=== PATIENT | male | born 1935 | race African-American/Black ===

== ENCOUNTER 2019-05-16 00:18 | Inpatient (IN) | payer OTHER ==
[~2019-05-16] VITALS: Ht 172.7 cm; Wt 103.4 kg
[2019-05-16] VITALS (7 sets, daily range): BP systolic 133–165; BP diastolic 70–107
--- NOTE | 2019-05-16 00:18 | NUR ---
PT BIBA TO BED 10.
--- NOTE | 2019-05-16 00:18 | NUR ---
RT AT BEDSIDE PATIENT PLACED ON BIPAP
--- NOTE | 2019-05-16 00:20 | NUR ---
PATIENT BREATHING LABORED AND EVEN, SPO2 100%. PATIENT IS ALERT AND ORIENTED. SKIN WARM AND DRY.
--- NOTE | 2019-05-16 00:20 | NUR ---
83 YEAR OLD MALE BIBA FOR SHORTNESS OF BREATHE. PATIENT RR 35, SPO2 96%. PATIENT HAS FAST, SHALLOW BREATHING. LUNG SOUNDS DIMINISHED BILATERALLY THROUGHOUT, WHEEZING ON LEFT LOWER LOBE. RESPIRATORY THERAPY AT BEDSIDE PLACED PATIENT ON BIPAP ON ARRIVAL. PATIENT ALERT AND ORIENTED, BED IN LOWEST POSITION, LOCKED, BED RAIL UPX1.
[2019-05-16] MEDS ORDERED: ALBUTEROL SULFATE/IPRATROPIU 3 ML SOL IH ONE (00:25)
--- NOTE | 2019-05-16 00:46 | NUR ---
XRAY AT BEDSIDE
[2019-05-16 00:51] LABS: BASOPHILS % (AUTO) 0.7 % (0.0-2.0); EOSINOPHILS # (AUTO) 0.1 K/uL (0-0.4); EOSINOPHILS % (AUTO) 3.3 % (0.0-4.0); HEMATOCRIT 47.6 % (36-52); HEMOGLOBIN 15.1 g/dL (12.0-18.0); LYMPHOCYTES # (AUTO) 1.5 K/uL (2.0-11.5); LYMPHOCYTES % (AUTO) 38.2 % (20.5-51.1); MEAN CORPUSCULAR HEMOGLOBIN 31 pg (27-31); MEAN CORPUSCULAR HGB CONC 32 g/dL (33-37); MONOCYTES # (AUTO) 0.7 K/uL (0.8-1.0); NEUTROPHILS # (AUTO) 1.6 K/uL (1.8-7.7); NEUTROPHILS % (AUTO) 40.8 % (42.2-75.2); PLATELET COUNT (AUTO) 146 K/uL (140-450); RED BLOOD CELL COUNT(AUTO) 4.91 MIL/uL (4.20-6.10); RED CELL DISTRIBUTION WIDTH 15.9 % (11.6-13.7); WHITE BLOOD COUNT (AUTO) 3.9 K/uL (4.8-10.8)
[2019-05-16 00:55] LABS: APPEARANCE,URINE CLEAR (CLEAR); BILIRUBIN,URINE 1+ (NEGATIVE); BLOOD, URINE 2+ (NEGATIVE); COLOR,URINE YELLOW (YELLOW); LEUKOCYTE ESTERASE ,URINE NEGATIVE (NEGATIVE); NITRITE, URINE NEGATIVE (NEGATIVE); UGLUCOSE NEGATIVE (NEGATIVE)
[2019-05-16 00:59] LABS: ANION GAP 9.5 (8-16); CARBON DIOXIDE 30.9 mmol/L (21-32); CHLORIDE 107 mmol/L (98-107); CREATININE 1.3 mg/dL (0.7-1.3); GLUCOSE 101 mg/dL (74-106); POTASSIUM 4.4 mmol/L (3.5-5.1); SODIUM SERUM 143 mmol/L (136-145); UREA NITROGEN, BLOOD 19 mg/dL (7-18)
[2019-05-16 01:07] LABS: PROTHROMBIN TIME 12.5 secs (10.8-13.4)
[2019-05-16 01:10] LABS: RBC,URINE 11-20 (MOD) /HPF (0-5)
[2019-05-16 01:11] LABS: WBC,URINE 0-5 /HPF (0-5)
[2019-05-16 01:12] LABS: ALBUMIN 3.4 g/dL (3.4-5.0); ASPARTATE AMINOTRANSFERASE 25 U/L (15-37); LIPASE 58 U/L (73-393); TOTAL BILIRUBIN 0.8 mg/dL (0.0-1.0)
--- NOTE | 2019-05-16 01:35 | NUR ---
RESUMED CARE OF PT. RECEIVED REPORT FROM ROXANNE MCNALLY AND ROXANNE MCDONALD. PT SITTING IN BED WITH BIPAP ON. AWAKE, ALERT. SPO2 97%. PT REPORTS DOING WELL. DENIES PAIN. REQUESTING TO TIGHTEN STRAPS ON MASK BECAUSE THE MASK FEELS LOOSE.
[2019-05-16] MEDS ORDERED: FUROSEMIDE 20 MG/2 ML VIAL IVP ONE (02:20)
[2019-05-16] MEDS ORDERED: NITROGLYCERIN 0.4 MG TAB SL ONE (02:20)
[2019-05-16] MEDS ORDERED: DOCUSATE SODIUM 100 MG GELCAP PO PRN (02:30)
[2019-05-16] MEDS ORDERED: ONDANSETRON 4 MG/2 ML VIAL IM/IVP PRN (02:30)
[2019-05-16] MEDS ORDERED: HYDROcodone/APAP 5/325 MG 1 TAB TAB PO PRN (02:30)
[2019-05-16] MEDS ORDERED: MORPHINE SULFATE 2 MG/ML SYR IVP PRN (02:30)
[2019-05-16] MEDS ORDERED: ACETAMINOPHEN 325 MG TAB PO PRN (02:30)
--- NOTE | 2019-05-16 02:30 | NUR ---
CLOTH FOLDER MACHINE AT BEDSIDE. ATTEMPTING TO TRIAL OFF BIPAP.
[2019-05-16] MEDS ORDERED: ALBUTEROL SULFATE/IPRATROPIU 3 ML SOL IH PRN (02:35)
--- NOTE | 2019-05-16 02:39 | NUR ---
TOLERATED TRIAL OFF BIPAP WELL. PT CALM. SKIN NORMAL FOR ETHNICITY. NO INCREASED WORK OF BREATHING AT THIS TIME. RESP RATE 18. SPO2 87%. PLACED ON 2 LPM O2 FOR SPO2 MAINTANANCE ABOVE 88%. 95% ON 2 LPM O2.
[2019-05-16 03:09] LABS: MAGNESIUM 1.9 mg/dL (1.8-2.4); PHOSPHORUS 3.2 mg/dL (2.5-4.9); THYROID STIMULATING HORMONE 2.56 uIU/mL (0.34-3.74)
[2019-05-16] MEDS ORDERED: AMLO5TAB PO (03:10)
--- NOTE | 2019-05-16 03:10 | NUR ---
SITTING IN HIGH STALEY'S IN BED. VSS. CALM, COOPERATIVE. A/O X 4. REPORTS NO PAIN. SPEAKS WITHOUT DISTRESS IN CLEAR VOICE. NO INCREASED WOB AT THIS TIME.
[2019-05-16] MEDS ORDERED: UMEC1POW IH (03:11)
--- NOTE | 2019-05-16 03:35 | NUR ---
RECEIVED BEDSIDE REPORT FROM ED RN BRIDGET, FOR PT'S CONTINUITY OF CARE. PT IS AAO X4, AMBULATORY, IS ON EAR NOSE THROAT SURGEON, ON 2L O2 VIA NC AND RECEIVING BREATHING TX, HAS RIGHT AC 20G, DENIES ANY PAIN AT THIS TIME. EXPLAINED TO PT THE CLAY PROCESSING LABOURER ROUTINE, PT VERBALIZED UNDERSTANDING. MD AT BEDSIDE FOR ASSESSMENT. SAFETY MEASURES IN PLACE. BED IS ON LOW POSITION, AND CALL LIGHT IS WITHIN REACH. WILL MONITOR PT THROUGHOUT SHIFT.
--- NOTE | 2019-05-16 03:35 | NUR ---
Patient will be admitted to care of [facility]. Admited to TELE. Will go to room 110B. Belongings list completed. Report to ROXANNE Daniels.
[2019-05-16] MEDS ORDERED: DABI150C PO (03:47)
[2019-05-16] MEDS ORDERED: TRAZ-343 PO (03:47)
[2019-05-16] MEDS ORDERED: ZOLP10TA1 PO (03:47)
[2019-05-16] MEDS ORDERED: SILD20TA PO (03:47)
[2019-05-16] MEDS ORDERED: LORA10TA19 PO (03:47)
[2019-05-16] MEDS ORDERED: LOSA50TA66 PO (03:47)
[2019-05-16] MEDS ORDERED: OMEP20TC12 PO (03:47)
[2019-05-16] MEDS ORDERED: POTA10TE30 PO (03:47)
[2019-05-16] MEDS ORDERED: PRED20TA5 PO (03:47)
[2019-05-16] MEDS ORDERED: DIT5 PO (03:47)
[2019-05-16] MEDS ORDERED: ATOR20TA PO (03:47)
[2019-05-16] MEDS ORDERED: ALBU-118 IH (03:47)
[2019-05-16] MEDS ORDERED: FURO-570 PO (03:47)
[2019-05-16] MEDS ORDERED: [UNRECOGNIZED DRUG - CODE] PO ×2 (03:47→10:38)
--- NOTE | 2019-05-16 06:05 | NUR ---
PT LYING DOWN IN BED WITH NO SIGNS OF DISTRESS. WILL HAVE PT SIGN FOR CONSENT FOR CTA.
[2019-05-16] MEDS: NACL 0.9% 250 ML IV SCH (06:13)
[2019-05-16] MEDS: PANTOPRAZOLE 40 MG TABEC PO SCH (06:46)
[2019-05-16] MEDS: ALBUTEROL SULFATE/IPRATROPIU 3 ML SOL IH SCH ×3 (07:16→19:53)
--- NOTE | 2019-05-16 07:20 | NUR ---
ENDORSED PT TO AM SHIFT RN FOR PT'S CONTINUITY OF CARE. ADMINISTERED SCHEDULED PO MEDICATION ORDERED. PT ON 3L O2 VIA NC. PT IN STABLE CONDITION
--- NOTE | 2019-05-16 07:35 | NUR ---
RECEIVED PATIENT FROM TRAVELING ENGINEER NURSE. PATIENT IS AWAKE. NO DISTRESS NOTED. RESPIRATIONS EVEN AND UNLABORED, ON 3 L O2 VIA NC. PATIENT DENIES ANY SOB. PATIENT IS ON TELE MONITORING. CONTROLLED A-FIB. SKIN INTACT, LOWER LEGS NONPITTING EDEMA NOTED. BOWEL SOUNDS ACTIVE X4 QUADS. SKIN INTACT. IV ON THE RIGHT AV G 20 RUNNING 0.9% NS AT 5ML/HR TKO. IV PATENT, DRY AND INTACT. BED IN LOW POSITION. CALL LIGHT IS WITHIN REACH. WILL CONTINUE TO MONITOR.
[2019-05-16] MEDS: FUROSEMIDE 20 MG/2 ML VIAL IVP SCH (08:43)
[2019-05-16] MEDS: LORATADINE 10 MG TAB PO SCH (08:44)
[2019-05-16] MEDS: amLODIPine 5 MG TAB PO SCH (08:44)
[2019-05-16] MEDS: POTASSIUM CHLORIDE 10 MEQ TABER PO SCH (08:44)
[2019-05-16] MEDS: SILDENAFIL 20 MG TAB PO SCH ×3 (08:45→16:04)
[2019-05-16] MEDS: OXYBUTYNIN 5 MG TAB PO SCH ×2 (08:45→21:03)
[2019-05-16] MEDS: LOSARTAN 50 MG TAB PO SCH (08:45)
--- NOTE | 2019-05-16 08:45 | NUR ---
ADMINISTERED MORNING MEDICATIONS. EDUCATED PATIENT ON MEDICATIONS AND SIDE EFFECTS. PATIENT VERBALIZED UNDERSTANDING. WILL CONTINUE TO MONITOR.
--- NOTE | 2019-05-16 08:55 | NUR ---
DC PLANNIN YRS OLD MALE PATIENT ADMITTED FROM HOME WITH A DX OF CHF EXACERBATION. PT HAS A HX OF A-FIB, HTN ,AND COPD. AMBULATE WITH WALKER AND USES OXYGEN WITH A BASE LINE OF 2L/NC . ADMINISTERED IV LASIX 20 MG, RT PORTOCOL TO MAINTAIN THE O2 SAT 88-92%, PULMO AND CARDIO CONSULT ORDERED. DC PLAN PER PT'S REQUEST TO TRANSFER TO [facility] . FAXED ALL THE REQUEST TO [facility]. CM TO FOLLOW. Addendum: 05/16/19 at 1044 by Kathie Lanza CM DC PLANNING: CALLED [facility] SPOKE WITH ASSOCIATE FINANCIAL REPRESENTATIVE MAUDE [phone] PER MAUDE WILL FIND THE ADMITTING DR TO ACCEPT PT TO ADMIT AND WILL CALL BACK. CM TO FOLLOW Addendum: 05/16/19 at 1556 by Kathie Lanza CM DC PLANNING: CALLED [facility] SPOKE WITH MAUDE KENASSOCIATE FINANCIAL REPRESENTATIVE, STATED THEY ARE COMPLETELY FULL AND STILL DIDN'T GET ACCEPTING DR. WILL CALL WHEN BED AVAILABLE. NOTIFIED DR MANDEL (RESIDENT) CM TO FOLLOW.
[2019-05-16] MEDS ORDERED: FUROSEMIDE 20 MG/2 ML VIAL IVP SCH (09:00)
[2019-05-16 09:07] LABS: CHOL/HDL RATIO 2.2 (1-4.5)
[2019-05-16] MEDS: DABIGATRAN ETEXILATE MESYLAT 75 MG CAP PO SCH ×2 (10:07→21:07)
--- NOTE | 2019-05-16 10:10 | NUR ---
PATIENT OFF UNIT FOR CT ANGIO VIA WHEELCHAIR.
--- NOTE | 2019-05-16 10:14 | NUR ---
PATIENT HAS BEEN SCREENED AND CATEGORIZED MODERATE NUTRITION RISK. PATIENT WILL BE SEEN WITHIN 3-5 DAYS OF ADMISSION. 05/18/19-05/20/[address]
--- NOTE | 2019-05-16 10:58 | NUR ---
PATIENT'S BACK FROM CT, TRANSFERED VIA WHEELCHAIR. PATIENT IN 3L O2 VIA NC. WILL CONTINUE TO MONITOR PATIENT.
--- NOTE | 2019-05-16 12:47 | NUR ---
PATIENT IS UTILIZING INCENTIVE SPIROMETER. 500-1000 ML, 10X PER HOUR. PATIENT DENIES SOB. WILL CONTINUE TO MONITOR.
--- NOTE | 2019-05-16 13:10 | NUR ---
ADMINISTERED SILDENAFIL PO. EDUCATED ON PURPOSE AND SIDE EFFECTS. PATIENT VERBALIZED UNDERSTANDING. PATIENT DENIES SOB. WILL CONTINUE TO MONITOR.
--- NOTE | 2019-05-16 13:32 | NUR ---
HX: COPD OXYGEN ORDER 88%-92% SATURATION 95% ON SUPPLEMENTAL OXYGEN AT 3 LPM VIA NC POST HHN THERAPY TITRATED FIO2 TO 2 LPM MARY/ROXANNE NOTIFIED
--- NOTE | 2019-05-16 15:38 | NUR ---
PATIENT IS SLEEPING AT THIS TIME. PATIENT DENIES PAIN. DENIES SOB. WILL CONTINUE TO MONITOR.
--- NOTE | 2019-05-16 19:20 | NUR ---
ENDORSED PATIENT TO RUG CLEANING SUPERVISOR NURSE FOR CONTINUITY OF CARE. PATIENT IS IN STABLE CONDITION.
--- NOTE | 2019-05-16 19:20 | NUR ---
RECIEVED PT AAOX4 , NID - ON O2 AT 4LPM /NC 02 SAT 97% . IV SITE INTACT AND PATENT . AT BEDSIDE . USES URINAL - DENIES ANY PAIN AT THIS TIME . UNSTEADY GAIT - ON SAFETY / FALL PRECAUTION PROTOCOL - BED ALARM ON . PLAN OF CARE DISCUSSED AND VERBALIZED UNDERSTANDING - CALL LIGHT WITHIN REACH . WILL CONT. TO MONITOR.
--- NOTE | 2019-05-16 20:45 | NUR ---
CALLED [facility] TALKED TO SUEDE BRUSHER LUTHER REGARDING DRJignesh ORDER FOR TRANSFER TO HIGHER LEVEL OF CARE, PER [facility] CURRENTLY THERE IS NO BED AND NO ADMITTING DOCTOR.
[2019-05-16] MEDS: ZOLPIDEM 10 MG TAB PO SCH (21:03)
[2019-05-16] MEDS: traZODone 50 MG TAB PO SCH (21:03)
[2019-05-16] MEDS: ATORVASTATIN 20 MG TAB PO SCH (21:04)
--- NOTE | 2019-05-16 22:00 | NUR ---
MADE ROUNDS - VOIDED THRU URINAL .- REMINDS HUIM THE USE OF CALL LIGHT WHEN HE NEEDED HELP . - BED ALARM ON
[2019-05-17] VITALS (7 sets, daily range): BP systolic 105–133; BP diastolic 57–80
--- NOTE | 2019-05-17 | NUR ---
MADE ROUNDS . NO S/SX OF ACUTE DISTRESS NOTED AT THIS TIME . CALL LIGHT WITHIN REACH.
--- NOTE | 2019-05-17 02:00 | NUR ---
MADE ROUNDS - SLEEPING - ON FLORAL DESIGNER.
--- NOTE | 2019-05-17 04:00 | NUR ---
MADE ROUNDS - NO S/SX OF ACUTE DISTRESS NOTED AT THIS TIME. CALL LIGHT WITHIN REACH.
[2019-05-17] MEDS: NACL 0.9% 250 ML IV SCH (06:00)
--- NOTE | 2019-05-17 06:00 | NUR ---
MADE ROUNDS , NO S/SX OF ACUTE DISTRESS NOTED AT THIS TIME . NO FURTHER COMPLAIN MADE AT THIS TIME . PLETHBOTOMIST AT BEDSIDE - EXTRACTING FOR BLLOD SAMPLE. WILL CONT. TO MONITOR
[2019-05-17 06:59] LABS: BASOPHILS % (AUTO) 0.6 % (0.0-2.0); EOSINOPHILS # (AUTO) 0.2 K/uL (0-0.4); EOSINOPHILS % (AUTO) 5.1 % (0.0-4.0); HEMATOCRIT 44.2 % (36-52); HEMOGLOBIN 13.9 g/dL (12.0-18.0); LYMPHOCYTES # (AUTO) 1.5 K/uL (2.0-11.5); LYMPHOCYTES % (AUTO) 35.5 % (20.5-51.1); MEAN CORPUSCULAR HEMOGLOBIN 30 pg (27-31); MEAN CORPUSCULAR HGB CONC 32 g/dL (33-37); MONOCYTES # (AUTO) 0.7 K/uL (0.8-1.0); MONOCYTES % (AUTO) 16.7 % (1.7-9.3); NEUTROPHILS # (AUTO) 1.7 K/uL (1.8-7.7); NEUTROPHILS % (AUTO) 42.1 % (42.2-75.2); PLATELET COUNT (AUTO) 137 K/uL (140-450); RED CELL DISTRIBUTION WIDTH 15.7 % (11.6-13.7); WHITE BLOOD COUNT (AUTO) 4.1 K/uL (4.8-10.8)
--- NOTE | 2019-05-17 07:17 | NUR ---
RECEIVED REPORT FROM FLYING TEACHER NURSE FOR CONTINUITY OF CARE. PT IN STABLE CONDITION. RESPIRATIONS EVEN AND UNLABORED, O2 4L VIA NC. IV INTACT AND PATENT. SAFETY MEASURES IN PLACE. BED IN LOW POSITION. BED ALARM ON. CALL LIGHT AT BEDSIDE. WILL CONTINUE TO MONITOR.
--- NOTE | 2019-05-17 07:17 | NUR ---
ENDORSED TO AM SHIFT , WITH STABLE CONDITION.
[2019-05-17 07:22] LABS: ANION GAP 10.7 (8-16); CARBON DIOXIDE 31.4 mmol/L (21-32); CHLORIDE 106 mmol/L (98-107); CREATININE 1.2 mg/dL (0.7-1.3); GLUCOSE 97 mg/dL (74-106); POTASSIUM 4.1 mmol/L (3.5-5.1); SODIUM SERUM 144 mmol/L (136-145); UREA NITROGEN, BLOOD 18 mg/dL (7-18)
[2019-05-17 07:26] LABS: MAGNESIUM 1.7 mg/dL (1.8-2.4); PHOSPHORUS 4.8 mg/dL (2.5-4.9)
[2019-05-17] MEDS: ALBUTEROL SULFATE/IPRATROPIU 3 ML SOL IH SCH ×3 (08:21→19:07)
[2019-05-17] MEDS: TREPROSTINIL DIOLAMINE 1 MG PO SCH ×3 (08:40→16:35)
--- NOTE | 2019-05-17 08:40 | NUR ---
GAVE ORDERED DUE MEDICATIONS AT THIS TIME. PT TOLERATED WELL. BED IN LOW POSITION. BED ALARM ON. CALL LIGHT AT BEDSIDE. WILL CONTINUE TO MONITOR.
[2019-05-17] MEDS: FUROSEMIDE 20 MG/2 ML VIAL IVP SCH (08:41)
[2019-05-17] MEDS: LORATADINE 10 MG TAB PO SCH (08:42)
[2019-05-17] MEDS: POTASSIUM CHLORIDE 10 MEQ TABER PO SCH (08:42)
[2019-05-17] MEDS: SILDENAFIL 20 MG TAB PO SCH ×3 (08:42→16:35)
[2019-05-17] MEDS: OXYBUTYNIN 5 MG TAB PO SCH ×2 (08:42→20:33)
[2019-05-17] MEDS: DABIGATRAN ETEXILATE MESYLAT 75 MG CAP PO SCH ×2 (08:43→20:35)
[2019-05-17] MEDS: PANTOPRAZOLE 40 MG TABEC PO SCH (08:55)
[2019-05-17] MEDS: LOSARTAN 50 MG TAB PO SCH (09:00)
[2019-05-17] MEDS: amLODIPine 5 MG TAB PO SCH (09:00)
[2019-05-17 09:08] LABS: T4 (THYROXINE) 7.7 ug/dL (4.5-12.0)
[2019-05-17] MEDS ORDERED: MAG SULF 2000 MG/WATER PREMIX 50 ML IV ONE (10:00)
--- NOTE | 2019-05-17 11:45 | NUR ---
MILTON ANTUNEZ AND PT SPOUSE AT BEDSIDE FOR UPDATE. PT IN STABLE CONDITION. BED IN LOW POSITION. BED ALARM ON. CALL LIGHT AT BEDSIDE. WILL CONTINUE TO MONITOR.
--- NOTE | 2019-05-17 13:15 | NUR ---
REQUESTING CANCEL TRANSFER TO [facility] FOR HIGHER LEVEL OF CARE. INFORMED SYEDA REDDY OF PT WISHES.
--- NOTE | 2019-05-17 14:00 | NUR ---
PT BROUGHT IN HOME MEDICATION ORENITRAM 0.125 FOR START DATE 05/18/2019 0800. MEDICATION GIVEN TO PHARMACY FOR PT DOSING.
--- NOTE | 2019-05-17 16:00 | NUR ---
ORENITRAM 0.125 STARTS ON 05/18/2019 0800. PHARMACY INFORMED. WILL ENDORSE TO ENROLLMENT SERVICES VICE PRESIDENT NURSE.
--- NOTE | 2019-05-17 19:09 | NUR ---
GAVE REPORT TO LOCOMOTIVE PIPE FITTER NURSE FOR CONTINUITY OF CARE. PT IN STABLE CONDITION.
--- NOTE | 2019-05-17 19:10 | NUR ---
RECEIVED BEDSIDE REPORT FROM AM SHIFT RN EMILEE, FOR PT'S CONTINUITY OF CARE. PT IS LYING DOWN COMFORTABLY, CURRENTLY RECEIVING BREATHING TREATMENT FROM RT, IS AT BEDSIDE. PT IS ON 4L O2 VIA NC, HAS RIGHT AC 20G WITH NS AT 5 ML/HR, DENIES ANY PAIN OR DISCOMFORT AT THIS TIME. EXPLAINED TO PT AND THE 3RD PRESSMAN ROUTINE, THEY VERBALIZED UNDERSTANDING. REMINDED STAFF REGARDING NEW HOME MED TO START AT 0800, WAS REASSURED BY RN'S. SAFETY MEASURES IN PLACE. CALL LIGHT IS WITHIN REACH. WILL MONITOR PT THROUGHOUT SHIFT.
--- NOTE | 2019-05-17 19:14 | NUR ---
RECEIVED PT ON 4L NC WITH SP02 95% AND CLEAR BREATH SOUNDS ON THE UPPER LOBES. PT IN NO RESPIRATORY DISTRESS AT THIS TIME. TX GIVEN ORDERED. WILL CONTINUE TO MONITOR PT.
[2019-05-17] MEDS: traZODone 50 MG TAB PO SCH (20:33)
[2019-05-17] MEDS: ZOLPIDEM 10 MG TAB PO SCH (20:35)
[2019-05-17] MEDS: ATORVASTATIN 20 MG TAB PO SCH (20:35)
--- NOTE | 2019-05-17 20:41 | NUR ---
ADMINISTERED SCHEDULED PO MEDICATIONS ORDERED. PT TOLERATED THEM WELL. PT TEACHING GIVEN. PT DENIES ANY PAIN AND DISCOMFORT AT THIS TIME. WILL CONTINUE TO MONITOR PT.
--- NOTE | 2019-05-17 23:45 | NUR ---
PT WAS ASSISTED BY THE [employer] DRIVER TO THE RESTROOM FOR BM, AND LINEN CHANGE. PT TOLERATED THE ACTIVITY WELL, WITH NO COMPLAINS OF PAIN OR DISTRESS.
[2019-05-18] VITALS: BP 130/77
--- NOTE | 2019-05-18 | NUR ---
ADMINISTERED SCHEDULED PO HOME MEDICATION ORDERED, TREPROSTINIL 1MG. PT TOLERATED IT WELL, WITH CHOCOLATE PUDDING. VS CHECKED AND CHARTED. PT'S NEEDS MET, AND DENIES ANY PAIN AT THIS TIME. WILL CONTINUE TO MONITOR PT.
[2019-05-18] MEDS: TREPROSTINIL DIOLAMINE 1 MG PO SCH ×2 (00:22→09:16)
--- NOTE | 2019-05-18 02:05 | NUR ---
MADE ROUNDS. PT LYING DOWN ASLEEP WITH NO SIGNS OF DISTRESS. WILL CONTINUE TO MONITOR PT.
--- NOTE | 2019-05-18 03:30 | NUR ---
MADE ROUNDS. PT IS LYING DOWN WITH NO SIGNS OF DISTRESS. WILL CONTINUE TO MONITOR PT.
[2019-05-18 04:00] VITALS: BP 118/77
--- NOTE | 2019-05-18 04:30 | NUR ---
VS CHECKED AND CHARTED. PT ASLEEP WITH NO SIGNS OF DISTRESS.
[2019-05-18] MEDS: PANTOPRAZOLE 40 MG TABEC PO SCH (05:41)
--- NOTE | 2019-05-18 05:41 | NUR ---
ADMINISTERED SCHEDULED PO MEDICATION ORDERED. PT TOLERATED IT WELL. PT DENIES ANY PAIN OR DISTRESS. O2 IS ON 4L NC. WILL CONTINUE TO MONITOR PT.
[2019-05-18] MEDS: NACL 0.9% 250 ML IV SCH (06:00)
--- NOTE | 2019-05-18 06:50 | NUR ---
PT LYING DOWN WITH NO SIGNS OF DISTRESS. WILL ENDORSE TO AM SHIFT RN FOR PT'S CONTINUITY OF CARE.
[2019-05-18] MEDS: ALBUTEROL SULFATE/IPRATROPIU 3 ML SOL IH SCH (07:05)
--- NOTE | 2019-05-18 07:15 | NUR ---
RECEIVED PT FROM DRY CANS BACK TENDER NURSE AGNIESZKA FOR CONTINUITY OF CARE. PT IN STABLE CONDITION. RESPIRATIONS EVEN AND UNLABORED, 02 4L VIA NC. IV INTACT AND PATENT. SAFETY MEASURES IN PLACE. BED IN LOW POSITION. BED ALARM ON. CALL LIGHT AT BESIDE. WILL CONTINUE TO MONITOR.
[2019-05-18 07:35] LABS: BASOPHILS % (AUTO) 0.7 % (0.0-2.0); EOSINOPHILS # (AUTO) 0.3 K/uL (0-0.4); EOSINOPHILS % (AUTO) 7.8 % (0.0-4.0); HEMATOCRIT 43.8 % (36-52); HEMOGLOBIN 13.9 g/dL (12.0-18.0); LYMPHOCYTES # (AUTO) 1.1 K/uL (2.0-11.5); LYMPHOCYTES % (AUTO) 30.1 % (20.5-51.1); MEAN CORPUSCULAR HEMOGLOBIN 31 pg (27-31); MEAN CORPUSCULAR HGB CONC 32 g/dL (33-37); MEAN CORPUSCULAR VOLUME 96.2 fL (80-94); MONOCYTES # (AUTO) 0.6 K/uL (0.8-1.0); MONOCYTES % (AUTO) 17.1 % (1.7-9.3); NEUTROPHILS # (AUTO) 1.6 K/uL (1.8-7.7); NEUTROPHILS % (AUTO) 44.3 % (42.2-75.2); PLATELET COUNT (AUTO) 136 K/uL (140-450); RED BLOOD CELL COUNT(AUTO) 4.55 MIL/uL (4.20-6.10); RED CELL DISTRIBUTION WIDTH 15.3 % (11.6-13.7); WHITE BLOOD COUNT (AUTO) 3.7 K/uL (4.8-10.8)
[2019-05-18 07:46] LABS: ANION GAP 6.6 (8-16); CARBON DIOXIDE 34.5 mmol/L (21-32); CHLORIDE 106 mmol/L (98-107); CREATININE 1.2 mg/dL (0.7-1.3); GLUCOSE 105 mg/dL (74-106); POTASSIUM 4.1 mmol/L (3.5-5.1); SODIUM SERUM 143 mmol/L (136-145); UREA NITROGEN, BLOOD 16 mg/dL (7-18)
[2019-05-18 08:00] VITALS: BP 117/63
[2019-05-18] MEDS: LORATADINE 10 MG TAB PO SCH (09:14)
[2019-05-18] MEDS: OXYBUTYNIN 5 MG TAB PO SCH (09:14)
[2019-05-18] MEDS: LOSARTAN 50 MG TAB PO SCH (09:14)
[2019-05-18] MEDS: SILDENAFIL 20 MG TAB PO SCH (09:14)
[2019-05-18] MEDS: POTASSIUM CHLORIDE 10 MEQ TABER PO SCH (09:15)
[2019-05-18] MEDS: FUROSEMIDE 20 MG/2 ML VIAL IVP SCH (09:15)
[2019-05-18] MEDS: DABIGATRAN ETEXILATE MESYLAT 75 MG CAP PO SCH (09:16)
[2019-05-18] MEDS: amLODIPine 5 MG TAB PO SCH (09:28)
--- NOTE | 2019-05-18 09:28 | NUR ---
ASSISTED PT TO RESTROOM AT THIS TIME FOR BM. PT TOLERATED WELL. WILL CONTINUE TO MONITOR.
--- NOTE | 2019-05-18 10:30 | NUR ---
PT SIGNED AMA AT THIS TIME.
--- NOTE | 2019-05-18 10:35 | NUR ---
PT MEDICATIONS PICKED UP FROM PHARMACY AND GIVEN TO PT AT THIS TIME. PT IV REMOVED, LUMEN INTACT. ID BAND REMOVED. PT WHEELED TO LOBBY IN STABLE CONDITION.
[2019-05-18] MEDS ORDERED: ALBUTEROL SULFATE/IPRATROPIU 3 ML SOL IH ONE (13:51)
== END 2019-05-18 10:54 | disposition left against medical advice (07) | DRG 291 ==
LOC: MED 00:18 → MTU 02:33
PROVIDERS: ADMIT General Practice; ATTEND General Practice
PROC: 5A09357 Assistance with Respiratory Ventilation, Less than 24 Consecutive Hours, Continuous Positive Airway Pressure (ICD-10-PCS; principal; 2019-05-16)
DX: I11.0 Hypertensive heart disease with heart failure (principal); J96.21 Acute and chronic respiratory failure with hypoxia; I50.43 Acute on chronic combined systolic (congestive) and diastolic (congestive) heart failure; E78.5 Hyperlipidemia, unspecified; Z99.81 Dependence on supplemental oxygen; I27.20 Pulmonary hypertension, unspecified; I48.91 Unspecified atrial fibrillation; J44.9 Chronic obstructive pulmonary disease, unspecified; K21.9 Gastro-esophageal reflux disease without esophagitis; G47.00 Insomnia, unspecified; J30.2 Other seasonal allergic rhinitis
CPT/HCPCS: 36415; 36600; 71045; 71275; 76770; 80048; 80053; 81001; 82803; 83036; 83605; 83690; 83735; 83880; 84100; 84436; 84443; 84484; 85025; 85610; 85730; 87040; 87081; 87086; 93005; 94640; 96374; 99291; J1940; J3475; J7030; J7620; Q0092; Q9967